=== PATIENT | female | born 1985 | race African-American/Black ===

== ENCOUNTER → 2019-11-26 | Emergency (ER) | payer SELFPAY ==
[~2019-11-26] VITALS: Ht 170.2 cm; Wt 71.2 kg
[~2019-11-26] MED LIST: HYDR500T13
[2019-11-26 23:00] VITALS: BP 133/94
== END | disposition home or self-care (01) ==
LOC: EDUNIT# 20:39 → EDBD 20:51 → ER 20:54
DX: S16.1XXA Strain of muscle, fascia and tendon at neck level, initial encounter (principal); S00.03XA Contusion of scalp, initial encounter; J45.909 Unspecified asthma, uncomplicated; Z90.710 Acquired absence of both cervix and uterus; V43.62XA Car passenger injured in collision with other type car in traffic accident, initial encounter; Y93.89 Activity, other specified; Y92.488 Other paved roadways as the place of occurrence of the external cause; Y99.8 Other external cause status
CPT/HCPCS: 70450; 72125

== ENCOUNTER 2019-12-20 04:47 | Emergency (ER) | payer SELFPAY ==
[~2019-12-20] VITALS: Ht 170.2 cm; Wt 70.8 kg
[2019-12-20] MEDS ORDERED: ONDANSETRON HCL 4 MG/2 ML VIAL IV ONE (05:00)
[2019-12-20] MEDS ORDERED: TETANUS-DIPTH-ACEL PERTUSSIS 0.5ML SYR Tdap IM ONE (05:00)
[2019-12-20] MEDS ORDERED: MORPHINE SULFATE 4 MG/ML SYR/VIAL IV ONE (05:00)
[2019-12-20] MEDS ORDERED: cefTRIAXone 1GM/50ML D5W 50 ML IV ONE (05:00)
[2019-12-20 05:52] LABS: Basophils # (auto) 0 10 ^3/uL (0-0.2); Basophils % (auto) 0.3 % (0.0-2.0); Eosinophils # (auto) 0 10 ^3/uL (0-0.8); Eosinophils % (auto) 0.4 % (0.0-7.0); Hematocrit 36.9 % (36.0-46.0); Hemoglobin 12.4 g/dL (12.2-16.2); Lymphocytes # (auto) 1.1 10 ^3/uL (0.4-5.4); Lymphocytes % (auto) 13.7 % (10.0-50.0); Mean Corpuscular Hemoglobin 28.3 pg (28.0-32.0); Mean Corpuscular Hgb Conc. 33.6 g/dL (32.0-36.0); Mean Corpuscular Volume 84.2 fL (80.0-100.0); Monocytes # (auto) 0.6 10 ^3/uL (0-1.3); Monocytes % (auto) 7.2 % (0.0-12.0); Neutrophils # (auto) 6.3 10 ^3/uL (1.6-8.6); Neutrophils % (auto) 78.4 % (37.0-80.0); Nucleated Red Blood Cells % 0.1 %; Platelet Count (auto) 225 10^3/uL (140-450); Red Blood Cells 4.38 10^6/uL (4.0-5.20); Red Cell Distribution Width 12.1 % (11.8-14.3)
[2019-12-20 06:00] VITALS: BP 131/77
[2019-12-20 06:06] LABS: INR 1.01 (0.9-1.15); Partial Thromboplastin Time 34.4 sec (23.64-32.05)
[2019-12-20 06:26] LABS: Albumin 3.6 g/dL (3.4-5.0); Potassium 3.3 mmol/L (3.5-5.1)
[2019-12-20 06:30] LABS: BUN/Creatinine Ratio 16.7; Total Protein 7.6 g/dL (6.4-8.2)
== END 2019-12-20 06:44 | disposition home or self-care (01) ==
LOC: EEVIPCON 04:47 → ER 04:47
DX: S31.829A Unspecified open wound of left buttock, initial encounter (principal); J45.909 Unspecified asthma, uncomplicated; Z90.710 Acquired absence of both cervix and uterus; S81.801A Unspecified open wound, right lower leg, initial encounter; W34.00XA Accidental discharge from unspecified firearms or gun, initial encounter; Y93.89 Activity, other specified; Y92.9 Unspecified place or not applicable; Y99.8 Other external cause status
CPT/HCPCS: 36415; 72170; 73501; 80053; 85025; 85610; 85730; 86850; 86900; 86901; 90471; 90715; 96374; 96375; 99284; J2270; J2405